=== PATIENT | male | born 1955 | race Caucasian/White ===

== ENCOUNTER 2018-02-17 15:05 | Inpatient (IN) ==
[2018-03-13 12:05] LABS: Appearance,Urine CLEAR; Bacteria,Urine 0 /hpf (0); Bilirubin,Urine NEG (NEG); Color,Urine YELLOW; Glucose,Urine (UA) NEGATIVE (NEG); Leukocyte Esterase,Urine NEG /uL (NEG); Mucus,Urine FEW /hpf (0); Protein,Urine NEG (NEG); Specific Gravity,Urine 1.023 (1.000-1.035); Urine Blood NEG mg/dL (<0.03); Urine RBC 3 /hpf (0-1); Urine Squamous Epithelial Cell 1 /hpf (0-4); Urine WBC 2 /hpf (0-4); Urobilinogen,Urine NEG (NEG)
[2018-03-13 12:11] LABS: Blood Urea Nitrogen 16 mg/dl (8-23)
[2018-03-13 12:16] LABS: Basophils # (Auto) 0 K/mcL (0.0-0.3); Basophils % (Auto) 0.6 % (0.0-2.0); Eosinophils # (Auto) 0.3 K/mcL (0.0-0.7); Eosinophils % (Auto) 3.5 % (0.0-7.0); Granulocytes % (Auto) 73.4 % (38.0-78.0); Lymphocytes # (Auto) 1.2 K/mcL (1.5-4.8); Lymphocytes % (Auto) 17.3 % (15.5-49.0); Mean Cell Volume 82.9 fL (80.0-100.0); Mean Corpuscular HGB Conc 33.6 g/dL (31.0-36.0); Mean Corpuscular Hemoglobin 27.8 pg (26.0-34.0); Monocytes # (Auto) 0.4 K/mcL (0.1-0.9); Monocytes % (Auto) 5.2 % (1.0-12.0); Platelet Count 315 K/mcL (140-440); RBC 4.64 M/mcL (4.50-5.90); Red Cell Distribution Width 17.8 % (11.5-14.5)
[2018-03-19] MEDS ORDERED: PREGABALIN 75 MG CAPSULE PO SCH (05:00)
[2018-03-19] MEDS ORDERED: ceFAZolin 1 GM VIAL IV SCH (05:00)
[2018-03-19] MEDS ORDERED: oxyCODONE 10 MG TAB.ER.12H PO SCH (05:00)
[2018-03-19] MEDS ORDERED: CELECOXIB 200 MG CAPSULE PO SCH (05:00)
[2018-03-19] MEDS ORDERED: KETOROLAC 30 MG, ROPIVACAINE HCL/PF 49.5 ML, EPINEPHrine 0.5 MG, 0.9 % SODIUM CHLORIDE ... IJ SCH (06:30)
[2018-03-19] MEDS ORDERED: LIDOCAINE HCL/PF 100 MG/5 ML SYRINGE IV ONE (09:45)
[2018-03-19] MEDS ORDERED: PROPOFOL 200 MG/20 ML VIAL IV ONE (09:45)
[2018-03-19] MEDS ORDERED: TRANEXAMIC ACID 1,000 MG/10 ML VIAL IV ONE ×2 (09:45→11:14)
[2018-03-19] MEDS ORDERED: DEXAMETHASONE 10 MG/ML VIAL IV ONE (09:45)
[2018-03-19] MEDS ORDERED: MIDAZOLAM 5 MG/5 ML VIAL IV ONE (09:45)
[2018-03-19] MEDS ORDERED: ROPIVACAINE HCL/PF 20 ML VIAL IJ ONE (09:45)
[2018-03-19] MEDS ORDERED: ePHEDrine 50 MG/ML AMPUL IV ONE (09:45)
[2018-03-19] MEDS ORDERED: PHENYLEPHRINE 10 MG/ML VIAL IV ONE (09:45)
--- NOTE | 2018-03-19 11:13 | Brief Operative Note ---
Date of procedure: 03/19/18 Pre-op diagnosis: Left knee DJD Post-op diagnosis: same Procedure: Left robotic assisted total knee arthroplasty Grafts/Implants: Yes (Brayan Triathlon CR 3 femur, 4 tibia, 33 patella, 9mm insert) Findings: medial and PF arthrosis Complications: none Surgeon: Kamran Guzman [employer] Manager: Santino Rai Estimated blood loss (cc): 30 Specimens Removed/Pathology: none sent Condition: stable Disposition: PACU
[2018-03-19] MEDS ORDERED: BISACODYL 10 MG SUPP.RECT PR PRN (11:14)
[2018-03-19] MEDS ORDERED: ONDANSETRON 4 MG/2 ML VIAL IV PRN ×2 (11:14→11:21)
[2018-03-19] MEDS ORDERED: BENZOCAINE/MENTHOL 1 LOZENGE PO PRN ×2 (11:14→11:21)
[2018-03-19] MEDS ORDERED: POLYETHYLENE GLYCOL 3350 17 GM PACKET PO PRN (11:14)
[2018-03-19] MEDS ORDERED: FLEETS ADULT ENEMA PR PRN (11:14)
[2018-03-19] MEDS ORDERED: MAGNESIUM HYDROXIDE 30 ML ORAL.SUSP PO PRN (11:14)
[2018-03-19] MEDS ORDERED: traMADol 50 MG TABLET PO PRN (11:17)
[2018-03-19] MEDS ORDERED: FLUMAZENIL 0.1 MG/ML ML IV PRN (11:21)
[2018-03-19] MEDS ORDERED: diphenhydrAMINE 50 MG/ML VIAL IV PRN (11:21)
[2018-03-19] MEDS ORDERED: PROMETHAZINE 25 MG/ML VIAL IV PRN (11:21)
[2018-03-19] MEDS ORDERED: METOPROLOL TARTRATE 5 MG/5 ML VIAL IV PRN (11:21)
[2018-03-19] MEDS ORDERED: ACETAMINOPHEN 1,000 MG/100 ML BOTTLE IV ONE (11:21)
[2018-03-19] MEDS ORDERED: NALOXONE HCL 0.4 MG/ML VIAL IV PRN (11:21)
[2018-03-19] MEDS ORDERED: ePHEDrine 50 MG/ML AMPUL IV PRN (11:21)
[2018-03-19] MEDS ORDERED: fentaNYL 100 MCG/2 ML VIAL IV PRN (11:21)
[2018-03-19] MEDS ORDERED: HYDROmorphone 2 MG/ML VIAL IV PRN (11:21)
[2018-03-19] MEDS ORDERED: IPRATROPIUM/ALBUTEROL 3 ML AMPUL.NEB NEB PRN (11:21)
[2018-03-19] MEDS ORDERED: METHOCARBAMOL 1,000 MG/10 ML VIAL IV PRN (11:21)
[2018-03-19] MEDS ORDERED: MEPERIDINE 25 MG/ML SYRINGE IV PRN (11:21)
[2018-03-19] MEDS ORDERED: ATROPINE SULFATE 0.4 MG/ML VIAL IV PRN (11:21)
[2018-03-19] MEDS ORDERED: LACTATED RINGERS 1,000 ML IV SCH (11:30)
--- NOTE | 2018-03-19 12:20 | XRay Report ---
CLINICAL INFORMATION: Reason for Exam:Post-op total knee COMPARISON: None. FINDINGS: Total knee prostheses is anatomically aligned. No osseous abnormality. Periarticular soft tissue swelling - seen - as expected IMPRESSION: Negative Interpreted and Authenticated by: Marcel Grigsby 03/19/18
[2018-03-19] MEDS: 0.9 % SODIUM CHLORIDE 1,000 ML IV SCH ×3 (13:46→22:02)
[2018-03-19] MEDS: KETOROLAC 30 MG/ML VIAL IV SCH ×3 (14:17→23:51)
[2018-03-19] MEDS: 0.9 % SODIUM CHLORIDE 10 ML SYRINGE IV SCH ×2 (14:18→22:02)
[2018-03-19] MEDS: HYDROmorphone 2 MG/ML VIAL IV PRN ×2 (14:27→17:49)
--- NOTE | 2018-03-19 14:30 | Operative Note ---
DATE OF OPERATION: 03/19/2018 PREOPERATIVE DIAGNOSIS: Left knee advanced osteoarthritis. POSTOPERATIVE DIAGNOSIS: Left knee advanced osteoarthritis. PROCEDURE PERFORMED: Robotic-assisted left total knee arthroplasty placing a Brayan Triathlon size 3 cruciate retaining femoral component, size 4 tibial baseplate, 9 mm X3 tibial insert with a 33 mm patellar button. SURGEON: Kamran Guzman MD. VP TALENT MANAGEMENT: Jordi Rai PA-C. ANESTHESIA: Spinal plus general. DRAINS: None. SPECIMENS: Bone cuts, which were discarded. BLOOD LOSS: 50 mL POSTOPERATIVE CONDITION: Stable. INDICATIONS FOR SURGERY: This is a 62-year-old male who had undergone a previous knee arthroscopy by mt. At the time of that arthroscopy he was noted to have fairly advanced arthrosis, more so than seen on x-ray. He did poorly postoperatively and was having pain uncontrolled with conservative treatment, so we recommended proceeding with a total knee. FINDINGS AT SURGERY: He had full-thickness cartilage loss off the medial and patellofemoral compartments. Post implantation showed good overall limb alignment, stability, and patellar tracking. PROCEDURE IN DETAIL: The patient had been seen preoperatively and informed consent had been obtained after discussion of risks and benefits of surgery. Risks including, but not limited to, bleeding, possibly requiring transfusion; infection, possibly requiring implant removal and prolonged IV antibiotics; injury to nerves, blood vessels other surrounding structures; anesthetic risks; incomplete or no resolution of symptoms; stiffness; swelling; pain; DVT and pulmonary embolus risks; and the possibility of needing further revision surgery. He understood these risks and wished to proceed. Correct operative site was marked and the patient was taken to the operating room after spinal anesthesia was given. LMA general was performed and then the left lower extremity was carefully prepped and draped in normal sterile fashion. A timeout was performed verifying patient name, operative site, and plan. Esmarch was used to exsanguinate the extremity and tourniquet was inflated. He had a previous incision medially so we incorporated this and excised his surgical scars. It was somewhat widened. IrriSept was irrigated and then a medial parapatellar arthrotomy was performed. Subperiosteal exposure was done of the anterior medial tibia and retropatellar fat pad and scar tissue were excised as well as the anterior horns of menisci. ACL was transected. Femoral and tibial checkpoints were placed. Two stab incisions were made over the tibia and two over the femur. We then placed bicortical pins in both and then connected the arrays. We irrigated with IrriSept and then the blue probe was used to do our mapping. Once this was completed, we went ahead and used a rongeur to remove osteophytes and we checked our flexion, extension gaps. I adjusted the bone cut so we had 17 mm medially in both flexion and extension. We had 16 laterally on flexion and 18 laterally in extension. We then used the robotic arm to do our bone cuts. The tibia was subluxed forward and posterior horns of the menisci were removed. We went ahead and positioned the tibial baseplate and pinned this into place. Boss reamer and keel punch were used to prepare and then a keeled tibial trial was placed. Femur was elevated. Curved osteotome was used to remove posterior osteophytes. We then placed the femoral component trial, pinned this into place and drilled our peg holes. We then placed a 9 insert. The knee was taken into extension. We checked on the computer and we were 5 degrees short of full. We then went ahead and did a freehand resection of the patella, initially measured 24 and after resection 14. We sized this to a 33, which was medialized maximally. Holes were drilled. A 33 patellar trial was placed and then we checked our thickness, which was again 24 mm. We performed a lateral facetectomy that was limited and then checked our patellar tracking, which was excellent. We then opened implants, removed trial implants. The checkpoints were removed. IrriSept was irrigated. Antibiotic cement was mixed. After waiting a minute on the IrriSept we pulse lavaged with saline and then CO2 gun was used to clean and dry the cancellous bone surfaces. We cemented the tibia first. Excess cement was removed. We then cemented the femur and removed excess cement. The 9 insert trial was placed. The knee was taken into extension and the patellar button was cemented. We filled the joint with IrriSept and then injected pain cocktail into the pericapsular and subcutaneous tissues. We went ahead and removed our arrays and pins from the femur and tibia. Once cement had fully hardened, we flexed the knee back up. We removed the trial insert. The definitive 9 insert was opened. We injected posterior capsule with pain cocktail and a pulse lavage with saline and then impacted the insert. The knee was then taken into about 45 degrees of flexion. Interrupted #2 FiberWire [id number] were used around the patella, interrupted #1 Vicryl around the inferior quadrant of the patella and running #1 Vicryls used for patellar tendon and quad tendon and then a final IrriSept irrigation done, after a minute final pulse lavage and then 2-0 Monocryl for subcutaneous and carolyn for skin. Xeroform sterile dressings were applied. Tourniquet was released. The patient was awakened, extubated, and transferred to recovery in stable condition. [email or web address] Job ID: [id number] Doc ID: [id number] Kamran Guzman MD
[2018-03-19] MEDS: ceFAZolin 1 GM VIAL IV SCH (17:52)
[2018-03-19] MEDS: HYDROcodone/APAP 10/325MG TABLET PO PRN ×2 (20:03→23:59)
[2018-03-19] MEDS ORDERED: ASPIRIN 325 MG ENTERIC COATED TABLET PO SCH (21:00)
[2018-03-19] MEDS ORDERED: SIMVASTATIN 40 MG TABLET PO SCH (21:00)
[2018-03-19] MEDS ORDERED: SENNOSIDES 1 TABLET PO SCH (21:00)
[2018-03-19] MEDS ORDERED: PRAZOSIN 1 MG CAPSULE PO SCH (21:00)
[2018-03-19] MEDS ORDERED: DOCUSATE SODIUM 100 MG CAPSULE PO SCH (21:00)
[2018-03-20] MEDS: ceFAZolin 1 GM VIAL IV SCH (01:21)
[2018-03-20] MEDS: KETOROLAC 30 MG/ML VIAL IV SCH (05:42)
[2018-03-20] MEDS: 0.9 % SODIUM CHLORIDE 10 ML SYRINGE IV SCH (05:42)
[2018-03-20] MEDS: HYDROcodone/APAP 10/325MG TABLET PO PRN (05:43)
[2018-03-20] MEDS: 0.9 % SODIUM CHLORIDE 1,000 ML IV SCH (07:38)
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
[2018-03-20] MEDS ORDERED: ALLOPURINOL 100 MG TABLET PO SCH (09:00)
[2018-03-20] MEDS ORDERED: FLUoxetine HCL 20 MG CAPSULE PO SCH (09:00)
== END 2018-03-20 09:13 | disposition home or self-care (01) | DRG 470 ==
LOC: MEDSUR 03-19 06:54 → EDSTATUS 03-19 07:30
PROVIDERS: ADMIT Orthopaedic Surgery; ATTEND Orthopaedic Surgery